=== PATIENT | male | born 1930 | race Caucasian/White ===

== ENCOUNTER 2017-02-19 10:36 | Emergency (ER) | payer MEDICARE ==
[~2017-02-19 10:36] MED LIST: ASPI81; EZET10 PO; FISH1000 PO; LISI40TA; METO100T; OXYC-360; VITA400C70 PO; VITA500C PO; WARF2.5
[2017-02-19 10:38] VITALS: BP 114/63; PULSE 86; RESP 24; TEMP 97.3; O2SAT 94
[2017-02-19 12:25] LABS: AUTOMATED NEUTROPHIL # 6.7 TH/MM3 (1.8-7.7); BASOPHIL # 0.1 TH/MM3 (0-0.2); BASOPHIL % 0.9 % (0.0-2.0); EOSINOPHIL # 0.1 TH/MM3 (0-0.4); HEMATOCRIT 40.5 % (39.0-51.0); HEMO FLAGS DIFF FINAL; LYMPH % 11.1 % (9.0-44.0); MEAN CELL VOLUME 92.9 FL (80.0-100.0); MEAN CORPUSCULAR HEMOGLOBIN 30.7 PG (27.0-34.0); MONO % 10.1 % (0.0-8.0); NEUT % 76.9 % (16.0-70.0); PLATELET COUNT 207 TH/MM3 (150-450); RED BLOOD COUNT 4.35 MIL/MM3 (4.50-5.90); RED CELL DISTRIBUTION WIDTH 15.7 % (11.6-17.2); WHITE BLOOD COUNT 8.7 TH/MM3 (4.0-11.0)
--- NOTE | 2017-02-19 12:27 | RADRPT ---
EXAM DATE/TIME: 02/19/2017 11:55 [facility] COMPARISON: No previous studies available for comparison. INDICATIONS : Shortness of breath. MEDICAL HISTORY : Hypertension. Hypercholesterolemia. A-fib. SURGICAL HISTORY : Left lobectomy. ENCOUNTER: Initial ACUITY: 1 day PAIN SCORE: 0/10 LOCATION: Bilateral chest FINDINGS: Increased density is identified along the left hemidiaphragm. Some minimal streaky airspace disease i s seen bilaterally in the central lung zones. Heart is mildly enlarged. Osseous structures appear intact. CONCLUSION: Left basilar opacity characteristic of airspace disease and small effusion. Eddie Cooley MD on February 19, 2017 at 12:24 Board Certified Radiologist. This report was verified electronically.
[2017-02-19 12:40] LABS: BICARBONATE 26.4 MEQ/L (21.0-32.0); POTASSIUM 4.1 MEQ/L (3.5-5.1)
[2017-02-19 13:08] VITALS: RESP 20; O2SAT 98
[2017-02-19] MEDS ORDERED: CLON0.1T PO (13:08)
[2017-02-19] MEDS ORDERED: ZETI10TA5 PO (13:08)
[2017-02-19] MEDS ORDERED: FISH1000 PO (13:08)
[2017-02-19] MEDS ORDERED: COUM7.5T PO (13:08)
[2017-02-19] MEDS ORDERED: ASPI-110 PO (13:08)
[2017-02-19] MEDS ORDERED: LISI-515 PO (13:08)
[2017-02-19] MEDS ORDERED: METH5TAB4 PO (13:08)
[2017-02-19] MEDS ORDERED: HYDR25TA5 PO (13:08)
[2017-02-19] MEDS ORDERED: AMLO5 PO (13:08)
[2017-02-19 13:15] VITALS: BP 143/64; PULSE 56; RESP 20; TEMP 97.8; O2SAT 97
[2017-02-19] MEDS ORDERED: RESP: ALBUTEROL 2.5 MG/3 ML NEB (SCH) INH ONE (14:00)
--- NOTE | 2017-02-19 14:12 | PD ---
HPI Chief Complaint: Respiratory Symptoms Time Seen by Provider: 14:07 Travel History International Travel<30 days: No Contact w/Intl Traveler<30days: No Traveled to known affect area: No History of Present Illness HPI 86-year-old male that presents to the ED for evaluation of shortness of breath and cold-like symptoms. Patient has a history of dementia as well as multiple surgeries to his lungs. Per patient he had a collapsed lung and he had resection of his long for unknown etiology. Per patient he was not cancer and family agrees with this. He does have a history of A. fib and takes Coumadin. He denies any chest pain. Per patient he has had some cough and runny nose for the past week yesterday night he developed an episode of shortness of breath where he felt like he couldn't take a deep breath the last and most of the night. Per patient now he feels back to normal. Per patient he is concerned because of what happened last night. He is never had anything like that before even when he had a collapsed lung. He denies any history of COPD or asthma. He denies any pain of any kind. He states that he has productive cough. Per family member patient has been hacking a lot of stuff and she believes that he is just not coughing right. Patient denies any fevers chills or sweats. No sick contacts. Has not taken anything for this. Hasn't seen anybody for this. Takes no inhalers. 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/06 FOR DISEASE LUNG) Other Surgery: Yes (AAA REPAIR, APPY) Social History Alcohol Use: Yes (rare beers ) Tobacco Use: No Substance Use: No (pt denies ) Allergies-Medications (Allergen,Severity, Reaction): Coded Allergies: HMG-CoA Reductase Inhibitors (Verified Adverse Reaction, Unknown, LEG CRAMPS, 02/19/17) Reported Meds & Prescriptions Reported Meds & Active Scripts Active Azithromycin 500 Mg Tab 500 Mg PO DAILY Proair Hfa 8.5 GM Inh (Albuterol Sulfate) 90 Mcg/Act Aer 2 Puff INH Q4-6H PRN 108 mcg/actuation Reported Norvasc (Amlodipine Besylate) 5 Mg Tab 5 Mg PO BID Methimazole 5 Mg Tab 0.5 Mg PO DAILY Zetia (Ezetimibe) 10 Mg Tab 10 Mg PO DAILY Lisinopril 20 Mg Tab 20 Mg PO DAILY Hydrochlorothiazide 25 Mg Tab 25 Mg PO DAILY Clonidine (Clonidine HCl) 0.1 Mg Tab 0.1 Mg PO BID Coumadin (Warfarin) 7.5 Mg Tab 7.5 Mg PO DAILY Fish Oil (Simpson-3 Fatty Acids) 1,000 Mg Cap 1,000 Tab PO DAILY Aspirin 81 (Aspirin) 81 Mg Tabdr 81 Mg PO DAILY Review of Systems Except as stated in HPI: all other systems reviewed are Neg Physical Exam Narrative GENERAL: SKIN: Warm and dry. HEAD: Atraumatic. Normocephalic. EYES: Pupils equal and round. No scleral icterus. No injection or drainage. ENT: No nasal bleeding or discharge. Mucous membranes pink and moist. No murmurs, S3, S4. NECK: Trachea midline. No JVD. CARDIOVASCULAR: Regular rate and rhythm. No murmurs, S3, S4. RESPIRATORY: No accessory muscle use. Clear to auscultation. Breath sounds equal bilaterally. GASTROINTESTINAL: Abdomen soft, non-tender, nondistended. Hepatic and splenic margins not palpable. MUSCULOSKELETAL: Extremities without clubbing, cyanosis, or edema. No obvious deformities. Full range of motion of the upper and lower extremities bilaterally. 2+ pulses bilaterally. NEUROLOGICAL: Awake and alert. No obvious cranial nerve deficits. Motor grossly within normal limits. Five out of 5 muscle strength in the arms and legs. Normal speech. PSYCHIATRIC: Appropriate mood and affect; insight and judgment normal. Data Data Last Documented VS Vital Signs Date Time Temp Pulse Resp B/P Pulse Ox O2 Delivery O2 Flow Rate FiO2 02/19/17 15:31 97.7 54 20 126/66 98 Room Air Orders Complete Blood Count With Diff (02/19/17 11:45) Basic Metabolic Panel (Bmp) (02/19/17 11:45) Chest, Pa & Lat (02/19/17 11:45) Blood Culture (02/19/17 11:45) Iv Access Insert/Monitor (02/19/17 11:45) Ecg Monitoring (02/19/17 11:45) Oxygen Administration (02/19/17 11:45) Oximetry (02/19/17 11:45) Electrocardiogram (02/19/17 11:45) Influenzae A/B Antigen (02/19/17 13:28) Ct Pulmonary Angiogram (02/19/17 ) B-Type Natriuretic Peptide (02/19/17 13:28) Albuterol Neb (Albuterol Neb) (02/19/17 14:00) Iohexol 350 Inj (Omnipaque 350 Inj) (02/19/17 15:29) Labs Laboratory Tests Test 02/19/17 12:03 White Blood Count 8.7 TH/MM3 Red Blood Count 4.35 MIL/MM3 Hemoglobin 13.4 GM/DL Hematocrit 40.5 % Mean Corpuscular Volume 92.9 FL Mean Corpuscular Hemoglobin 30.7 PG Mean Corpuscular Hemoglobin 33.0 % Concent Red Cell Distribution Width 15.7 % Platelet Count 207 TH/MM3 Mean Platelet Volume 7.7 FL Neutrophils (%) (Auto) 76.9 % Lymphocytes (%) (Auto) 11.1 % Monocytes (%) (Auto) 10.1 % Eosinophils (%) (Auto) 1.0 % Basophils (%) (Auto) 0.9 % Neutrophils # (Auto) 6.7 TH/MM3 Lymphocytes # (Auto) 1.0 TH/MM3 Monocytes # (Auto) 0.9 TH/MM3 Eosinophils # (Auto) 0.1 TH/MM3 Basophils # (Auto) 0.1 TH/MM3 CBC Comment DIFF FINAL Differential Comment Sodium Level 139 MEQ/L Potassium Level 4.1 MEQ/L Chloride Level 107 MEQ/L Carbon Dioxide Level 26.4 MEQ/L Anion Gap 6 MEQ/L Blood Urea Nitrogen 21 MG/DL Creatinine 1.18 MG/DL Estimat Glomerular Filtration 59 ML/MIN Rate Random Glucose 97 MG/DL Calcium Level 9.4 MG/DL B-Type Natriuretic Peptide 167 PG/ML MDM Medical Decision Making Medical Screen Exam Complete: Yes Emergency Medical Condition: Yes Medical Record Reviewed: Yes Interpretation(s) Last Impressions Chest X-Ray 02/19/17 1145 Signed Impressions: Service Date/Time: Sunday, February 19, 2017 11:55 - CONCLUSION: Left basilar opacity characteristic of airspace disease and small effusion. Eddie Cooley MD CT Angiography 02/19/17 0000 Signed Impressions: Service Date/Time: Sunday, February 19, 2017 15:11 - CONCLUSION: 1. There is no evidence for PE for technique. 2. Huge multinodular goiter with substernal extension and underlying malignant mass is very difficult to exclude. 3. Bilateral pleural effusions. 4. Haziness right upper lobe most likely inflammatory. 5. There are lymph nodes within the mediastinum the largest measures 2.7 cm in right paratracheal area nonspecific could be benign. Vernell Alan MD CBC & BMP Diagram 02/19/17 12:03 BMP within normal limits. EKG showed atrial fibrillation which is chronic but no sign of acute ischemia or arrhythmia. No RVR Differential Diagnosis Shortness of breath versus respiratory distress versus asthma versus COPD versus heart failure versus PE versus pneumonia Narrative Course 86-year-old male that presents to the ED for evaluation of shortness of breath. Patient was properly examined and was found to have signs and symptoms of unclear etiology. Patient does have some rales on exam. Patient was given breathing treatment. Patient did have some labs and imaging at triage which show what appears to be possible early pneumonia versus lung disease. Patient states that he had this episode of shortness of breath or recurrent take deep breaths. He has no pain. Low probability of PE but definite concerning as patient has never had anything like this before. He also has similar to get history of multiple lung surgeries. We'll do CT to rule out any sign of acute disease. Flu test was done as well. Patient was given breathing treatment here with good relief. Labs and imaging showed what appears to be inflammatory process to the right lung. Some pulmonary edema as well as goiter. My attending Dr. Avelar evaluated the patient with me and agrees the patient should be started on antibiotics to cover for pneumonia which is likely what is having. Patient will be given a prescription for azithromycin and albuterol. Patient's vitals and physical exam are reassuring. My attending Dr. Rios agrees with this. This was discussed with the family and patient were in agreement with plan. Patient was treated with azithromycin as well as Pro Air. Patient was told to follow closely with PCP. Take OTC medicines as needed. See ED worsening symptoms. Diagnosis Primary Impression: Pneumonia Qualified Code: J18.9 - Pneumonia of right lung due to infectious organism, unspecified part of lung Patient Instructions: General Instructions Additional Instructions: Take medications as prescribed. Follow with PCP. See ED worsening symptoms. Your CAT scan shows that you have what's call a Goiter which means that your thyroid gland its enlarged. Please follow-up with her primary care doctor about this next week as he may need ultrasound and further testing if needed. Med/Other Pt SpecificInfo: Prescription(s) given Scripts Azithromycin 500 Mg Nay057 Mg PO DAILY #5 TAB Ref 0 Prov:Pratibha Rios DO 02/19/17 Albuterol 8.5 GM Inh (Proair Hfa 8.5 GM Inh)90 Mcg/Act Aer2 Puff INH Q4-6H PRN ( SHORTNESS OF BREATH) #1 INHALER 108 mcg/actuation Prov:Pratibha Rios DO 02/19/17 Disposition: 01 DISCHARGE HOME Condition: Stable Danis Slater Feb 19, 2017 14:12
[2017-02-19] MEDS ORDERED: IOHEXOL 350 MG/ML 10 ML VIAL (for RAD DIAG) IV ONE (15:29)
[2017-02-19 15:31] VITALS: BP 126/66; PULSE 54; RESP 20; TEMP 97.7; O2SAT 98
--- NOTE | 2017-02-19 15:46 | RADRPT ---
EXAM DATE/TIME: 02/19/2017 15:11 [facility] COMPARISON: No previous studies available for comparison. INDICATIONS : Shortness of breath. IV CONTRAST: 74 cc Omnipaque 350 (iohexol) IV RADIATION DOSE: 24.68 CTDIvol (mGy) MEDICAL HISTORY : Aneurysm, abdominal. Myocardial infarction. Hypertension.Diabetes SURGICAL HISTORY : Abdominal aortic aneurysm repair. Lobectomy.Appendectomy. ENCOUNTER: Initial ACUITY: 1 day PAIN SCALE: 0/10 LOCATION: chest TECHNIQUE: Volumetric scanning of the chest was performed using a pulmonary embolism protocol MIP images were re constructed. Using automated exposure control and adjustment of the mA and/or kV according to patien t size, radiation dose was kept as low as reasonably achievable to obtain optimal diagnostic quality images. DICOM format image data is available electronically for review and comparison. Follow-up recommendations for incidentally detected pulmonary nodules are based at a minimum on nodul e size and patient risk factors according to Fleischner Society Guidelines. FINDINGS: There is no evidence for PE for technique. Huge multinodular goiter is present. It measures 6.6 cm with substernal extension which measures 6.8 cm. Underlying malignant mass is difficult to exclude . Bilateral pleural effusions are present to a moderate degree. There is mild haziness of right upper lobe probably inflammatory. Coronary artery calcifications are seen typically seen with CAD and need to be evaluated clinically. There are atherosclerotic calcifications of the aorta due to chronic ath erosclerotic disease. CONCLUSION: 1. There is no evidence for PE for technique. 2. Huge multinodular goiter with substernal extension and underlying malignant mass is very difficult to exclude. 3. Bilateral pleural effusions. 4. Haziness right upper lobe most likely inflammatory. 5. There are lymph nodes within the mediastinum the largest measures 2.7 cm in right paratracheal are a nonspecific could be benign. Vernell Alan MD on February 19, 2017 at 15:41 Board Certified Radiologist. This report was verified electronically.
[2017-02-19] MEDS ORDERED: AZIT500T2 PO (16:02)
[2017-02-19] MEDS ORDERED: ALBUAER3 INH (16:02)
[2017-02-19 16:16] VITALS: BP 130/71; TEMP 97.8
--- NOTE | 2017-02-20 12:49 | EKG ---
Date Performed: 02/19/2017 Time Performed: 13:16:28 PTAGE: 86 years EKG: ATRIAL FIBRILLATION INFERIOR MYOCARDIAL INFARCTION ABNORMAL ECG PREVIOUS TRACING : 09/07/2006 11.49 Since prior tracing, the inferior infarct pattern is more p rominent. DOCTOR: Nicola Flores Interpretating Date/Time 02/20/2017 12:47:55
== END 2017-02-19 16:16 | disposition home or self-care (01) ==
LOC: NEPE 10:36
DX: J18.9 Pneumonia, unspecified organism (principal); R94.31 Abnormal electrocardiogram [ECG] [EKG]; F03.90 Unspecified dementia, unspecified severity, without behavioral disturbance, psychotic disturbance, mood disturbance, and anxiety; E11.9 Type 2 diabetes mellitus without complications; I10 Essential (primary) hypertension; E07.9 Disorder of thyroid, unspecified; E78.00 Pure hypercholesterolemia, unspecified; I25.2 Old myocardial infarction; Z79.01 Long term (current) use of anticoagulants; Z86.79 Personal history of other diseases of the circulatory system; Z87.09 Personal history of other diseases of the respiratory system
CPT/HCPCS: 71020; 71275; 80048; 83880; 85025; 87040; 87804; 93005; 94664; 99285; J7613; Q9967